=== PATIENT | male | born 1955 | race Caucasian/White ===

== ENCOUNTER 2020-06-12 17:17 | Emergency (ER) | payer SELFPAY ==
[~2020-06-12] VITALS: Ht 188 cm; Wt 132.9 kg
[2020-06-12] MEDS ORDERED: ACETAMINOPHEN500 MG PO (18:18)
[2020-06-12] MEDS ORDERED: AUGMENTIN 875-1 EACH PO (18:18)
[2020-06-12] MEDS ORDERED: IBUPROFEN IB200 MG PO (18:18)
[2020-06-12] MEDS ORDERED: TETANUS/DIPHTHERIA TOX ADULT 0.5 ML SYR IM STA (18:25)
[2020-06-12] MEDS ORDERED: TETANUS/DIPHTHERIA TOX ADULT 0.5 ML SYR ONE (18:28)
[2020-06-12] MEDS ORDERED: BACITRACIN ZINC 0.9GM TP ONE (18:28)
[2020-06-12] MEDS ORDERED: MUPIROCIN 2% OINT 22 GM TUBE TOP ONE (18:30)
== END 2020-06-12 18:37 | disposition home or self-care (01) ==
LOC: FSED 17:45
DX: S61.052A Open bite of left thumb without damage to nail, initial encounter (principal); W54.0XXA Bitten by dog, initial encounter; Y92.008 Other place in unspecified non-institutional (private) residence as the place of occurrence of the external cause
CPT/HCPCS: 90471; 90714; 96372; 99283